=== PATIENT | male | born 2005 | race Caucasian/White ===

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

== ENCOUNTER 2024-03-13 19:11 | Emergency (ER) | payer MEDICAID, SELFPAY ==
[2024-03-13 19:12] VITALS: BP 124/73; PULSE 70; RESP 18; TEMP 36.8; O2SAT 99; BMI 32.7
--- NOTE | 2024-03-13 19:29 | XRR_ITS ---
PROCEDURE INFORMATION: Exam: XR Chest Exam date and time: 03/13/2024 7:32 PM Age: 18 years old Clinical indication: Pain; Chest pressure; Additional info: Left-sided cp TECHNIQUE: Imaging protocol: Radiologic exam of the chest. Views: 1 view. COMPARISON: CR XR chest 1V portable [id number] 09/29/2023 6:19 PM FINDINGS: Lungs: The lungs are adequately expanded. No focal consolidations or pulmonary edema. There is bronchial wall thickening which can be seen with atypical infectious or inflammatory etiology. Pleural spaces: No pleural effusions or pneumothorax. Heart/Mediastinum: No cardiomegaly. Bones/joints: No acute fractures. XR/XR chest 1V portable [id number] IMPRESSION: There is bronchial wall thickening which can be seen with atypical infectious or inflammatory etiology.
--- NOTE | 2024-03-13 19:30 | ED_ITS ---
HPI - Chest Pain 2 General: Chief Complaint: Chest Pain Stated Complaint: Chest Pain Time Seen by Provider: 03/13/24 19:24 Source: patient Mode of arrival: ambulatory Limitations: no limitations History of Present Illness: Patient is a 18-year-old male who presents to the emergency department complaining of left-sided chest pain with radiation of the left arm beginning today around 1400. 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 He does report to me a history of heart attack that was eventually diagnosed with myositis, this occurred back in September. He was not antiplatelet therapy until November, notes that since then he has had no issues. He was short of breath a little earlier, however states that upon entering air conditioning this resolved. However the pain in his left chest has persisted since. He states it does feel different than when he was diagnosed with heart attack in the past. Pain is noted to be a pressure, and it feels deep. He denies to me any syncope, dizziness, abdominal pain, or other symptoms. He did not take anything for the pain prior to arrival. MD complaint: chest pain Pertinent past history: prior RI Onset (ago): hour(s) Timing of current episode: constant Prior episodes: Yes Pain location: left chest Pain radiation: left arm Quality: heaviness Relieving factors: nothing Exacerbating factors: nothing Associated symptoms: Reports dyspnea; Deny abdominal pain, fever(s), nausea, palpitations or vomiting Related Data Home Medications Medication Instructions Recorded Confirmed cetirizine 10 mg capsule 10 mg PO DAILY 09/28/23 12/03/23 amlodipine 5 mg tablet 5 mg PO DAILY 12/03/23 12/03/23 aspirin 81 mg tablet,delayed 81 mg PO DAILY 12/03/23 12/03/23 release (Adult Low Dose Aspirin) atorvastatin 40 mg tablet 40 mg PO DAILY 12/03/23 12/03/23 isosorbide mononitrate 30 mg 30 mg PO DAILY 12/03/23 12/03/23 tablet,extended release 24 hr metoprolol succinate 25 mg 12.5 mg PO DAILY 12/03/23 12/03/23 tablet,extended release 24 hr Previous Rx's Medication Instructions Recorded amlodipine 5 mg tablet 5 mg PO DAILY #30 tabs 12/03/23 aspirin 81 mg chewable tablet 81 mg PO DAILY #30 tabs 12/03/23 atorvastatin 40 mg tablet 40 mg PO DAILY #30 tabs 12/03/23 isosorbide mononitrate 30 mg 30 mg PO DAILY #30 tabs 12/03/23 tablet,extended release 24 hr metoprolol succinate 25 mg 25 mg PO DAILY #30 tabs 12/03/23 tablet,extended release 24 hr Allergies Allergy/AdvReac Type Severity Reaction Status Date / Time No Known Allergies Allergy Verified 12/03/23 11:49 Review of Systems 2 General: Reports: 10 or more systems reviewed and unremarkable except in HPI and below Const: Denies: fever(s), chills or fatigue Eyes: Denies: change in vision ENMT: Denies: throat pain, ear or mastoid pain or nasal discharge Card: Reports: chest pain; Denies: palpitations, swelling of feet/ankles or lightheadedness Resp: Reports: dyspnea; Denies: productive cough or wheezing GI: Denies: abdominal pain, nausea, vomiting, diarrhea or constipation : Denies: flank pain, difficulty urinating, dysuria or urinary frequency Musc: Reports: extremity pain; Denies: neck pain, back pain or joint pain Skin/Breast: Denies: rash Neuro: Denies: headache(s), numbness in extremities or weakness in extremities PFSH ED 2 PFSH: Medical History Coronary vasospasm Allergic rhinitis Surgical History History of tonsillectomy and adenoidectomy Family History Other CAD (coronary artery disease) Social History Smoking and tobacco/nicotine status: current every day tobacco/nicotine user Alcohol intake: never Physical Exam 2 Const: COMMON NORMALS: no acute distress and no limitations GENERAL APPEARANCE: cooperative, comfortable and well developed O RIENTATION/CONSCIOUSNESS: Yes awake HENMT: COMMON NORMALS: normocephalic, atraumatic and hearing grossly normal bilaterally HEAD & SCALP: normocephalic and atraumatic Eye: COMMON NORMALS: Equal, round and reactive pupils present, EOMs intact bilaterally and conjunctivae normal CONJUNCTIVA: Yes conjunctivae normal P UPIL: Yes Equal, round and reactive pupils present Neck/C-Spine: COMMON NORMALS: full ROM, supple and no JVD Resp: COMMON NORMALS: normal respiratory effort, No retractions, No use of accessory muscles and clear to auscultation bilaterally AUSCULTATION: clear to auscultation bilaterally Cardio: COMMON NORMALS: no JVD, regular rate, regular rhythm, No clicks present (Cardio), No murmurs present (Cardio) and No rub (Cardio) RATE: r egular rate RHYTHM: regular rhythm GI: COMMON NORMALS: Normal to inspection, nondistended, normoactive bowel sounds present, Soft to palpation and non-tender AUSCULTATION: Yes normoactive bowel sounds PALPATION: Yes Soft to palpation RECTAL EXAM: Yes deferred Extremity: COMMON NORMALS: normal to inspection, full ROM, capillary refill normal, no calf tenderness and no pedal edema Psych: COMMON NORMALS: mental status grossly normal and Normal thought process present THOUGHT PROCESS: Normal thought process present Skin: COMMON NORMALS: no rashes or lesions noted GENERAL SKIN EXAM: no rashes or lesions noted Course 2 Vital Signs: Vital signs: Vital Signs Temperature 98.2 F 03/13/24 19:12 Pulse Rate 65 03/13/24 20:30 Respiratory Rate 19 H 03/13/24 20:30 Blood Pressure 128/74 03/13/24 20:30 Pulse Oximetry 98 03/13/24 20:30 Oxygen Delivery Me thod Room Air 03/13/24 20:30 MDM - Chest Pain Medical Decision Making Patient presented with for evaluation of left-sided chest pain radiation to the arm that began earlier today. History of myocarditis. Still had pain on examination. However the rest was unremarkable and he had normal cardiopulmonary auscultation. Initial EKG did not demonstrate any acute findings, this was reviewed with Dr. Jules. Chest x-ray showed some bronchial wall thickening, however patient had no complaints of being currently short of breath or cough. His troponin was negative. Rest of his lab work unremarkable. Patient is informed to follow-up with primary care later this week for further outpatient cardiac workup, and I do believe at this time his pain is musculoskeletal in nature as he states he has been lifting very heavy recently. However strict return cautions were given. Lab Data 03/13/24 19:53 03/13/24 19:53 Radiology Impressions Chest X-Ray 03/13/24 19:29 IMPRESSION: There is bronchial wall thickening which can be seen with atypical infectious or inflammatory etiology. Laboratory Results WBC 8.00 10^3/uL (4.5-13.0) 03/13/24 19:53 RBC 4.68 10^6/uL (3.85-5.65) 03/13/24 19:53 Hgb 13.80 g/dL (13.2-15.6) 03/13/24 19:53 Hct 40.1 % (37-53) 03/13/24 19:53 MCV 85.7 fl (82-101) 03/13/24 19:53 MCH 29.5 pg (27-33) 03/13/24 19:53 MCHC 34.4 g/dL (30-55) 03/13/24 19:53 RDW 13.0 % (12.1-15.1) 03/13/24 19:53 Plt Count 262 10^3/cmm (157-399) 03/13/24 19:53 MPV 8.8 fL (7.4-10.4) 03/13/24 19:53 Neut % (Auto) 59.4 % 03/13/24 19:53 Lymph % (Auto) 29.1 % 03/13/24 19:53 Cook % (Auto) 8.1 % 03/13/24 19:53 Eos % (Auto) 2.5 % 03/13/24 19:53 Baso % (Auto) 0.6 % 03/13/24 19:53 Neut # (Auto) 4.75 10^3/uL (1.8-8.0) 03/13/24 19:53 Lymph # (Auto) 2.3 10^3/uL (1.5-6.5) 03/13/24 19:53 Cook # (Auto) 0.7 10^3/uL (0.2-0.9) 03/13/24 19:53 Eos # (Auto) 0.2 10^3/uL (0.0-0.8) 03/13/24 19:53 Baso # (Auto) 0.1 10^3/uL (0.0-0.1) 03/13/24 19:53 Nucleated RBC % (auto) 0 % 03/13/24 19:53 Nucleated RBCs # 0.0 /100WBC 03/13/24 19:53 Sodium 138 mmol/L (136-145) 03/13/24 19:53 Potassium 3.6 mmol/L (3.5-5.1) 03/13/24 19:53 Chloride 103 mmol/L (98-107) 03/13/24 19:53 Carbon Dioxide 24 mmol/L (22-29) 03/13/24 19:53 Anion Gap 14.6 (5-19) 03/13/24 19:53 BUN 9 mg/dL (6-20) 03/13/24 19:53 Creatinine 0.6 mg/dL (0.7-1.2) L 03/13/24 19:53 GFR Calculation 173.6 mL/min (90-130) H 03/13/24 19:53 Glucose 93 mg/dL (65-115) 03/13/24 19:53 Calculated Osmolality 284 mOsm/kg (285-295) L 03/13/24 19:53 Calcium 9.1 mg/dL (8.5-10.5) 03/13/24 19:53 Total Bilirubin 0.3 mg/dL (0.15-1.2) 03/13/24 19:53 AST 16 U/L (0-40) 03/13/24 19:53 ALT 14 U/L (0-41) 03/13/24 19:53 Alkaline Phosphatase 74 U/L (40-130) 03/13/24 19:53 Troponin T Baseline < 6 ng/L (0-15) 03/13/24 19:53 Total Protein 7.0 g/dL (6.6-8.7) 03/13/24 19:53 Albumin 4.4 g/dL (3.5-5.2) 03/13/24 19:53 Globulin 2.6 g/dL (1.3-4.6) 03/13/24 19:53 All radiology interpretation(s) finalized by discharge Discharge Plan Discharge Patient Disposition: Home Clinical Impression: Chest pain Condition: Stable Prescriptions: No Action atorvastatin 40 mg tablet 40 mg PO DAILY aspirin [Adult Low Dose Aspirin] 81 mg tablet,delayed release (DR/EC) 81 mg PO DAILY metoprolol succinate 25 mg tablet extended release 24 hr 12.5 mg PO DAILY isosorbide mononitrate 30 mg tablet extended release 24 hr 30 mg PO DAILY amlodipine 5 mg tablet 5 mg PO DAILY isosorbide mononitrate 30 mg tablet extended release 24 hr 30 mg PO DAILY Qty: 30 0RF amlodipine 5 mg tablet 5 mg PO DAILY Qty: 30 0RF metoprolol succinate 25 mg tablet extended release 24 hr 25 mg PO DAILY Qty: 30 0RF atorvastatin 40 mg tablet 40 mg PO DAILY Qty: 30 0RF aspirin 81 mg tablet,chewable 81 mg PO DAILY Qty: 30 0RF cetirizine 10 mg Capsule 10 mg PO DAILY Discharge Orders: Discharge ED (Routine); Ordered 03/13/24 Ordered By: Karl Pérez Referrals: Ольга Diaz MD [Family Provider] - Morena Bullock FNP-C [Primary Care Provider] - Discharge Diet: Usual diet Discharge Activity: Increase activity as tolerated Patient Instructions: Chest Pain (ED) Activity Restrictions/Additional Instructions: Please follow-up with your primary care provider later this week as discussed. If you develop any new or concerning symptoms whatsoever, please return for reevaluation. Coding Level of Care Code ED [employer] for Rhina Barclay
[2024-03-13] MEDS: aspirin 81 mg Chew Tablet 324 MG PO (19:39)
[2024-03-13 19:45] VITALS: BP 134/60; PULSE 85; RESP 18; O2SAT 97
[2024-03-13 20:00] VITALS: BP 120/69; PULSE 74; RESP 13; O2SAT 98
[2024-03-13 20:00] LABS: Basophils # 0.1 10^3/uL (0.0-0.1); Basophils % 0.6 %; Eosinophils # 0.2 10^3/uL (0.0-0.8); Eosinophils % 2.5 %; Hematocrit 40.1 % (37-53); Lymphocytes # 2.3 10^3/uL (1.5-6.5); Lymphocytes % 29.1 %; Mean Corpuscular HGB Conc 34.4 g/dL (30-55); Mean Corpuscular Hemoglobin 29.5 pg (27-33); Mean Corpuscular Volume 85.7 fl (82-101); Mean Platelet Volume 8.8 fL (7.4-10.4); Monocytes # 0.7 10^3/uL (0.2-0.9); Monocytes % 8.1 %; Neutrophils # 4.75 10^3/uL (1.8-8.0); Neutrophils % 59.4 %; Nucleated Red Blood Cells % 0 %; Platelet Count 262 10^3/cmm (157-399); Red Blood Count 4.68 10^6/uL (3.85-5.65)
--- NOTE | 2024-03-13 20:05 | ECG_ITS ---
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 Measurements Intervals [place] Rate: 59 P: 15 NV: 159 QRS: 9 QRSD: 105 T: 21 QT: 378 QTc: 376 Interpretive Statements SINUS BRADYCARDIA WITH SINUS ARRHYTHMIA MINIMAL VOLTAGE CRITERIA FOR LVH, CONSIDER NORMAL VARIANT [MEETS CRITERIA IN ONE OF: R(aVL), S(V1), R(V5), R(V5/V6)+S(V1)] Compared to ECG 09/30/2023 08:39:37 Sinus rhythm no longer present Left-axis deviation no longer present T-wave abnormality no longer present Possible ischemia no longer present Electronically Signed On 03-14-2024 23:26:48 CDT by Flako Garcia M.D. [id number]
[2024-03-13 20:17] LABS: Troponin(5th) Baseline < 6 ng/L (0-15)
[2024-03-13 20:26] LABS: Alanine Aminotransferase 14 U/L (0-41); Albumin Level 4.4 g/dL (3.5-5.2); Alkaline Phosphatase 74 U/L (40-130); Anion Gap 14.6 (5-19); Aspartate Amino Transferase 16 U/L (0-40); Blood Urea Nitrogen 9 mg/dL (6-20); Calcium 9.1 mg/dL (8.5-10.5); Carbon Dioxide 24 mmol/L (22-29); Chloride 103 mmol/L (98-107); Creatinine Clr Calc Pharmacy 267.7304; Globulin 2.6 g/dL (1.3-4.6); Glomerular Filtration Rate 173.6 mL/min (90-130); Glucose 93 mg/dL (65-115); Osmolality Calculated 284 mOsm/kg (285-295); Potassium 3.6 mmol/L (3.5-5.1); Sodium 138 mmol/L (136-145); Total Bilirubin 0.3 mg/dL (0.15-1.2)
[2024-03-13 20:30] VITALS: BP 128/74; PULSE 65; RESP 19; O2SAT 98
[2024-03-13 20:48] VITALS: BP 128/74; PULSE 62; RESP 16; O2SAT 97
--- NOTE | 2024-03-13 21:28 | ECG_ITS ---
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 Measurements Intervals [place] Rate: 61 P: 30 WA: 133 QRS: -18 QRSD: 102 T: 20 QT: 361 QTc: 364 Interpretive Statements SINUS RHYTHM INCOMPLETE RIGHT BUNDLE BRANCH BLOCK [90+ ms QRS DURATION, TERMINAL R IN V1/V2, 40+ ms S IN I/aVL/V4/V5/V6] VOLTAGE CRITERIA FOR LVH [MEETS CRITERIA IN ONE OF: R(aVL), S(V1), R(V5), R(V5/V6)+S(V1)] Compared to ECG 09/30/2023 08:39:37 Incomplete right bundle-branch block now present Left ventricular hypertrophy now present Left-axis deviation no longer present T-wave abnormality no longer present Possible ischemia no longer present Electronically Signed On 03-14-2024 23:35:38 CDT by Flako Garcia M.D. [email or web address]
== END 2024-03-13 20:49 | disposition home or self-care (01) ==
PROVIDERS: Emergency Provider Physician Assistant; Family Provider Pediatrics Adolescent Medicine; PCP Nurse Practitioner
DX: R07.9 Chest pain, unspecified (principal); Z79.82 Long term (current) use of aspirin; Z72.0 Tobacco use
CPT/HCPCS: 71045; 80053; 84484; 85025; 93005; 99285

== ENCOUNTER 2024-03-22 13:11 | Outpatient (CLI) | payer MEDICAID, SELFPAY ==
--- NOTE | 2024-03-22 13:18 | XR_ITS ---
WS: [id number] Exam: XR chest 2V* [id number] Date/Time of Exam: 03/22/2024 1:39 PM Reason For Exam: R93.89 - Abnormal findings on diagnostic imaging of other... Comparison 03/13/2024. The lungs are clear and fully expanded. Normal cardiomediastinal silhouette and regional bony element s. No pleural effusions. XR/XR chest 2V* [id number] IMPRESSION: 1. Negative chest.
== END 2024-03-22 13:12 | disposition home or self-care (01) ==
LOC: RAD 13:12
PROVIDERS: PCP Nurse Practitioner; Visit Provider Nurse Practitioner
DX: R93.89 Abnormal findings on diagnostic imaging of other specified body structures (principal)
CPT/HCPCS: 71046